=== PATIENT | female | born 1945 | race Caucasian/White ===

== ENCOUNTER → 2020-05-26 16:41 | Outpatient (BNVA) | payer MEDICARE, SELFPAY | PROVIDERS: Family Provider Internal Medicine; Visit Provider Emergency Medicine | DX: Z20.828 Contact with and (suspected) exposure to other viral communicable diseases (principal) | CPT/HCPCS: 87635 ==

== ENCOUNTER 2021-03-20 12:54 | Outpatient (CLI) | payer MEDICARE, SELFPAY ==
--- NOTE | 2021-03-20 13:10 | CT_ITS ---
WS: [id number] CT scan of the abdomen and pelvis with Oral and IV contrast. Additional two-dimensional coronal and s agittal reconstruction was performed. 03/20/2021 Clinical Data: GENERALIZED ABDOMINAL PAIN Comparison: None. DLP: 1148.[address] scans at [facility] use at least one of these dose optimization techniques: automat ed exposure control; mA and/or kV adjustment per patient size (includes targeted exams where dose is matched to clinical indication); or iterative reconstruction. Findings: The lower lungs show no nodules, masses or effusions. There is a small hiatal hernia. The liver, gallbladder, spleen and pancreas are normal. Left adrenal gland is enlarged to 4.3 cm and this may represent an adrenal adenoma. The kidneys show equal bilateral contrast excretion with no cyst or masses. No hydronephrosis or justus l calculi are seen. The abdominal aorta is normal in size with calcification in the wall.. No appendicitis or diverticulitis is seen. Oral contrast is in the stomach, small bowel and colon and there is no bowel dilatation. No abscess, adenopathy, ascites, mass, obstruction or free air is seen . The bladder is unremarkable. The uterus shows calcification within from a leiomyoma. No inguinal presley ia is seen. The bones of the lower thorax, lumbar spine, pelvis, and hips show severe osteoarthritic change of th e lumbar spine with disc narrowing, subluxation at L4-L5 and a posterior fusion at L4-L5. CT/CT abdomen pelvis w con* [id number] Impression: 1. Negative for acute intra-abdominal or pelvic abnormalities. 2. Probable 4.3 cm left adrenal adenoma.
[2021-03-20] MEDS: iohexol 300 mg/mL 50 mL Btl PO (13:34)
[2021-03-20 15:04] LABS: Blood Urea Nitrogen 16 mg/dL (8-23)
[2021-03-20] MEDS: iohexol 300 mg/mL 100 mL Btl IV (15:20)
== END 2021-03-20 12:55 | disposition home or self-care (01) ==
PROVIDERS: PCP Family Medicine; Visit Provider Family Medicine
DX: R10.84 Generalized abdominal pain (principal)
CPT/HCPCS: 74177; 82565; 84520; Q9967

== ENCOUNTER 2021-09-09 12:59 | Emergency (ER) | payer MEDICARE, SELFPAY ==
[2021-09-09 13:55] VITALS: BP 137/94; PULSE 108; RESP 24; TEMP 36.1; O2SAT 98; BMI 26.5
--- NOTE | 2021-09-09 14:03 | XRR_ITS ---
PROCEDURE INFORMATION: Exam: XR Left Knee Exam date and time: 09/09/2021 2:03 PM Age: 76 years old Clinical indication: Pain; Knee; Left TECHNIQUE: Imaging protocol: XR Left knee. Views: 3 views. COMPARISON: No relevant prior studies available. FINDINGS: Bones/joints: Severe joint space narrowing centered at the medial compartment with near clty-re-cidf contact and subchondral sclerotic change. Moderate degenerative changes of the patellofemoral compartment is also noted. Negative for fracture. Joint effusion is present. Soft tissues: Normal. XR/XR knee LT 3V* [id number] IMPRESSION: Severe DJD centered within the medial compartment.
--- NOTE | 2021-09-09 14:04 | W.ED.GENADLT ---
HPI - General Adult General: Chief complaint: General Medical Stated complaint: left knee pain Time Seen by Provider: 09/09/21 14:00 History of Present Illness: HPI narrative: She states thatPatient complains acute left knee pain. Patient states she was told 12 or 13 years ago that she would need a replacement. Last couple weeks been hurting a lot more. She has been able to deal with it until now. Hurts to bear weight. Denies any redness swelling or fever to the knee denies any recent injury. MD complaint: Left knee pain Onset (ago): week(s) Location: lower extremity Severity: severe Severity scale (1-10): 6 Quality: aching Pain Consistency: constant Relieving factors: immobilization Exacerbating factors: movement Associated symptoms: Reports no associated symptoms; Deny chest pain, dyspnea, headache(s), nausea, rash or vomiting Review of Systems Const: Denies: fever(s), chills or body aches Eyes: Denies: change in vision or blurry vision ENMT: Denies: throat pain or nasal congestion Card: Denies: chest pain or dyspnea on exertion Resp: Denies: dyspnea, productive cough or non-productive cough GI: Denies: abdominal pain, nausea or vomiting Musc: Reports: joint pain (Left knee x2 to 3 weeks at least); Denies: extremity pain Skin/Breast: Denies: rash Neuro: Denies: headache(s) Psych: Denies: anxiety or depression Jose/Lymph: Denies: easy bruising PFSH ED PFSH: Family History Sister Hypertension Father Hypertension Denies family history of Diabetes Cancer Social History (Updated 05/26/20 @ 16:14 by Lianna Lao LPN) Smoking and tobacco status: current every day smoker Alcohol intake: never Physical Exam Const: COMMON NORMALS: no acute distress, average body habitus and patient oriented x3 HENMT: COMMON NORMALS: normocephalic HEAD & SCALP: normal to inspection and normocephalic FACE & SINUS: normal facial exam Eye: COMMON NORMALS: conjunctivae normal GENERAL EYE: appearance normal, both eyes and all related structures CONJUNCTIVA: Yes conjunctivae normal Neck/C-Spine: COMMON NORMALS: no JVD Chest: COMMONS NORMALS: normal inspection of the chest Resp: COMMON NORMALS: normal respiratory effort and clear to auscultation bilaterally AUSCULTATION: clear to auscultation bilaterally Cardio: COMMON NORMALS: no JVD, regular rate and regular rhythm RATE: regular rate RHYTHM: regular rhythm GI: COMMON NORMALS: Normal to inspection, nondistended, normoactive bowel sounds present Extremity: LEFT LOWER EXTREMITY: Yes knee joint (Mild swelling noted to the knee which patient states is chronic) Left knee: Yes ROM (Decreased due to pain), Yes neurovascular exam (Intact) and Yes other (No redness or heat noted to the joint.) Neuro: COMMON NORMALS: patient oriented x3 Course Vital Signs: Vital signs: Vital Signs Temperature 97.0 F L 09/09/21 13:55 Pulse Rate 108 H 09/09/21 13:55 Respiratory Rate 24 H 09/09/21 13:55 Blood Pressure 137/94 09/09/21 13:55 Pulse Oximetry 98 09/09/21 13:55 MDM - General Adult MDM Narrative: Medical decision making narrative: Patient with chronic left knee pain that is worsening. X-ray was done that showed severe DJD centered within the medial compartment report identify joint effusion but not delineated as a large joint effusion. Reviewed x-ray with Dr. Gatica. Patient is requesting referral for knee replacement and states that she will follow-up with Dr. Cade to obtain that. Discharge Plan Discharge Patient Disposition: Home Clinical Impression: Osteoarthritis of knee Qualifiers: Osteoarthritis type: primary Laterality: left Qualified Code(s): M17.12 - Unilateral primary osteoarthritis, left knee Condition: Stable Prescriptions: New Celebrex 100 mg capsule 200 mg PO BID Qty: 20 RF: 0 No Action atorvastatin 20 mg tablet 20 mg PO DAILY RF: 0 aspirin [Adult Low Dose Aspirin] 81 mg tablet,delayed release (DR/EC) 81 mg PO DAILY RF: 0 amlodipine 10 mg tablet 10 mg PO DAILY RF: 0 ondansetron 4 mg tablet,disintegrating 4 mg PO Q6H PRN (Reason: nausea and vomiting) Qty: 12 RF: 0 Discharge Orders: Discharge ED (Routine); Ordered 09/09/21 Ordered By: Tano Naranjo Referrals: Milind Cade MD [Primary Care Provider] - Discharge Diet: Usual diet Discharge Activity: Increase activity as tolerated Patient Instructions: Knee Pain (ED), Arthritis (ED) Activity Restrictions/Additional Instructions: Follow-up with medical provider as directed. Take medications as prescribed. Return to the ER or your medical provider if condition worsens. Please read and understand discharge instructions. If any questions ask please. Please follow-up with Dr. Cade and get a referral to interior specialist for possible knee replacement. You have severe osteoarthritis of the left knee. You have [id number] in this knee and it needs repair for you 2 have improved quality of life. Coding Level of Care Code ED Return To Service Inspector for Radhag Fwd Exam Comprehensive
[2021-09-09] MEDS: methylPREDNISolone (DEPO) 80 MG/ML INJ 1 mL IM (15:29)
[2021-09-09] MEDS: CELEcoxib 200 mg Capsule 400 MG PO (15:29)
[2021-09-09 15:31] VITALS: BP 159/96; PULSE 96; RESP 19; O2SAT 94
== END 2021-09-09 15:34 | disposition home or self-care (01) ==
PROVIDERS: Emergency Provider Nurse Practitioner Family; PCP Family Medicine
DX: M17.12 Unilateral primary osteoarthritis, left knee (principal); Z79.82 Long term (current) use of aspirin; F17.210 Nicotine dependence, cigarettes, uncomplicated
CPT/HCPCS: 73562; 96372; 99283; J1040

== ENCOUNTER 2021-10-22 13:48 | Observation (INO) | payer MEDICARE, SELFPAY ==
[2021-10-17 13:19] VITALS: BMI 31.1
--- NOTE | 2021-10-17 13:36 | ECG_ITS ---
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 Measurements Intervals [place] Rate: 118 P: 64 PA: 168 QRS: -14 QRSD: 67 T: 47 QT: 314 QTc: 441 Interpretive Statements SINUS TACHYCARDIA LOW QRS VOLTAGE IN PRECORDIAL LEADS [QRS DEFLECTION < 1.0 mV IN CHEST LEADS] POSSIBLE ANTERIOR MYOCARDIAL INFARCTION , PROBABLY OLD [30 ms Q WAVE IN V3/V4, OR R < 0.2 mV IN V4] No previous ECG available for comparison Electronically Signed On 10-17-2021 16:04:14 CRITICAL CARE PARAMEDIC by Ceferino Gonzalez M.D. [id number]
[2021-10-22] VITALS (20 sets, daily range): BP systolic 91–133; BP diastolic 48–87; PULSE 76–95; RESP 14–18; TEMP 36.4–36.7; O2SAT 91–100
[2021-10-22] MEDS: sodium chloride 0.9% 1,000 ML 30 ML IV (08:57)
[2021-10-22] MEDS: oxyCODONE 20 mg ER (12 HR) Tablet PO (08:58)
[2021-10-22] MEDS: acetaminophen 500 mg Tablet 1000 MG PO ×2 (08:58→15:28)
[2021-10-22] MEDS: gabapentin 300 mg Capsule PO ×2 (08:58→18:25)
[2021-10-22] MEDS: CELEcoxib 200 mg Capsule 400 MG PO (09:02)
[2021-10-22] MEDS: scopolamine 1.5 Patch 1 PATCH TRANSDERMA (09:16)
--- NOTE | 2021-10-22 09:16 | P.ANESUD_ITS ---
Pre-Anesthetic Update Pre-Anesthetic Assessment: Date of Surgery/Procedure: 10/22/21 Preop Alana gnosis: Osteoarthritis Left knee Proposed Procedure: Operation Date: 10/22/21 09:50 Proposed Procedures p Left Total Knee Arthroplasty 13909/m17.12(Left) - Jayme Olivo MD Any changes to Pre-Anesthetic Assessment?: No Last Intake: Intake Last Liquid Date 10/21/21 Last Liquid Time 22:00 Last Solid Date 10/21/21 Last Solid Time 22:00 Vitals: Temperature 98.1 F 10/22/21 08:32 Temperature Source Temporal Artery S can 10/22/21 08:32 Pulse Rate 95 10/22/21 08:32 Respiratory Rate 18 10/22/21 08:32 Blood Pressure 128/70 10/22/21 08:32 Blood Pressure Izzy n 89 10/22/21 08:32 Pulse Oximetry 94 10/22/21 08:32 Oxygen Delivery Me thod 10/22/21 08:39 Exam: Pre-Anes Outpt Exam: alert, oriented x 3, clear to auscultation bilaterally and regular rate & rhythm Other Pertinent Information: Other Pertinent Information: We discussed risk and benefits of nerve block for post op pain control including management of pain and titration of pain medications as signs/symptoms of nerve block wearing off begin to appear and/or prior bed. We discussed risk of failed nerve block, vascular injury or other vital structure injury, abscess/infection, LAST, and nerve injury. Patient prefers general. Would like to be out for the block. We discussed options for timing, patient agreed to have block placed in PACU when she is waking up from anesthesia at which point she might have recall but will still be under the effects and sedation of anesthesia. Cardiac Studies: No Data to Display
[2021-10-22 10:04] LABS: Adenovirus Not Detected (NOT DETECT); Coronavirus 229E,HKU1,NL63,OC4 Not Detected (NOT DETECT); Human Metapneumovirus Not Detected (NOT DETECT); Human Rhinovirus/Enterovirus Not Detected (NOT DETECT); Influenza A Detected (NOT DETECT); SARS-COV-2 Not Detected (NOT DETECT)
[2021-10-22 10:05] LABS: Chlamydia Pneumoniae Not Detected (NOT DETECT); Influenza A H1 Not Detected (NOT DETECT); Influenza A H1-2009 Not Detected (NOT DETECT); Influenza A H3 Detected (NOT DETECT); Influenza B Not Detected (NOT DETECT); Mycoplasma Pneumoniae Not Detected (NOT DETECT); Parainfluenza Virus Type 1 Not Detected (NOT DETECT); Parainfluenza Virus Type 2 Not Detected (NOT DETECT); Parainfluenza Virus Type 3 Not Detected (NOT DETECT); Parainfluenza Virus Type 4 Not Detected (NOT DETECT); Respiratory Syncytial Virus A Not Detected (NOT DETECT); Respiratory Syncytial Virus B Not Detected (NOT DETECT)
[2021-10-22 10:05] LABS: Results from Genmark
[2021-10-22 10:06] LABS: Influenza A Detected (NOT DETECT); Influenza A H1 Not Detected (NOT DETECT); Influenza A H1-2009 Not Detected (NOT DETECT); Influenza A H3 Detected (NOT DETECT); Influenza B Not Detected (NOT DETECT)
--- NOTE | 2021-10-22 10:11 | W.PM.OPSUD ---
Surgery/Procedure H&P Update DATE OF PROCEDURE: October 22, 2021 DATE H&P PERFORMED: 10/10/21 H&P UPDATE INFORMATION: I have reviewed H&P completed within last 30 days PREOP DIAGNOSIS: Osteoarthritis Left knee PLANNED PROCEDURE: Operation Date: 10/22/21 09:50 Proposed Procedures p Left Total Knee Arthroplasty 45416/m17.12(Left) - Jayme Olivo MD
[2021-10-22] MEDS: tranexamic acid 1,000 mg/10mL SDV 1000 MG XX (11:08)
[2021-10-22] MEDS: EPINEPHrine 1 mg/mL INJ XX (11:09)
[2021-10-22] MEDS: ketorolac 30 mg/mL INJ XX (11:09)
[2021-10-22] MEDS: tranexamic acid 1,000 mg/10mL SDV 1000 MG IV (11:10)
--- NOTE | 2021-10-22 12:31 | XRR_ITS ---
PROCEDURE INFORMATION: Exam: XR Left Knee Exam date and time: 10/22/2021 12:31 PM Age: 76 years old Clinical indication: Device placement; Joint replacement hardware; Prior surgery; Surgery date: Post-operative (0-2 days); Additional info: Left total knee arthroplasty TECHNIQUE: Imaging protocol: XR Left knee. Views: 1 or 2 views. COMPARISON: CR (LOW EXM, ) 09/09/2021 2:21 PM FINDINGS: Bones/joints: The patient has undergone recent insertion of a total knee prosthesis. Some gas is present in the joint from the recent surgery. No fracture. Soft tissues: Normal. XR/XR knee LT 1-2V [id number] IMPRESSION: Satisfactory appearance of the knee joint prosthesis.
--- NOTE | 2021-10-22 12:33 | P.OP_ITS ---
Operative Report Date of procedure: October 22, 2021 Pre-op diagnosis: Preop Diagnosis Osteoarthritis Left knee Post-op diagnosis: same Post-op diagnosis: Same Post-op findings: Same Procedure done: Left total knee arthroplasty Implants: Belle total knee arthroplasty components were used includin) Size 2 triathalon cruciate retaining femoral component 2) Size 3 Tritanium tibial component 3) 29 mm /9 mm thickness Tritanium asymetric patella 4) Size 3/11 mm thickness CR tibial bearing insert Pathology: none sent Surgeon: Jayme Olivo Anesthesia: Nerve Block (Spinal, adductor canal block) Estimated blood loss (mL): 150 Condition: stable Disposition: PACU Procedure: The patient was taken to the operating room. Patient was given 1 g of tranexamic acid . The above anesthesia provided by the anesthesia service. A timeout was performed. The patient was prepped and draped in the usual fashion with the lower extremity exposed. A anterior incision was made, midline, from a point proximal to the patella to the distal tibial tubercle. The knee was entered through a medial parapatellar approach. The patella could be displaced laterally and the knee flexed. The patellar fat pad was resected to provide better visibility. Retractors were placed medially and laterally adjacent to the tibial plateau. The femoral canal was drilled in line with the longitudinal axis of the femur. Intramedullary femoral guide for used to make a distal femoral cut in 5 degrees of valgus, resecting 8 mm from the more prominent condyle. Next the extra medullary tibial guide was placed in alignment with the longitudinal axis of the tibia. The cutting guides were set to remove just over 9 mm from the high tibial plateau. The proximal tibia was then cut. The femoral measuring guide was then placed over the distal femur. Rotation was verified checking the relationship of the guide to the condyle and the trochlear groove. The femur was measured and cut for the desired femoral component. The desired tibial baseplate was then chosen. A trial reduction with the femur tibial baseplate and polyethylene was done, assuring that the knee was stable throughout full motion. Ligament balancing involved nothing more than a release of the deep medial collateral ligament and removal of residual medial tibial osteophyte tibia was prepared for the tibial baseplate. Patellar thickness was then measured. The patella was cut removing articular cartilage and prepared for appropriate size patellar button. surfaces were cleaned with a gentamicin solution. The femur tibia and patella were then press- fit into place. The posterior capsule and collateral ligaments were then injected with a solution of 100 mL of 0.2% ropivacaine, 1 mL of a 1:1000 epinephrine solution, 30 mg of Toradol, and 1 g of tranexamic acid. Final polyethylene component was then snapped into place into the tibia. The extensor retinaculum was closed with a running 1 Stratafix interrupted 1 E thibond. The subcutaneous tissues were closed with 2-0 Vicryl and the skin was closed with a running 4-0 Stratafix. The wound was covered with a Dermabond Prineo dressing. It was covered with 4xrs and a compressive Tubigauze was applied. The patient was taken to recovery room in stable condition.
[2021-10-22] MEDS: HYDROmorphone 1 mg/mL INJ 1 mL 0.5 MG IVP (12:43)
--- NOTE | 2021-10-22 12:54 | ANES.PROC ---
Anesthesia Procedures Procedure/Date: 10/22/21 Nerve Block ^: Nerve Block 1: Main Anesthesia: general anesthesia Time Out Performed: Yes (3175) Consent: requested by attending/covering physician and from patient Nerve block location: adductor canal Anesthesia monitors applied: pulse oximetry, EKG, BP cuff and oxygen Nerve block position: supine Anesthetic Used: bupivacaine 0.5% Amount of anesthesia used (mL): 20 Ultrasound used to: recognize landmarks and visualize and ID femerol nerve Nerve Stimulator Used?: No Interscalene/Femoral BLK: 4 stimuplex 21 g needle used for position and inplane approach, visualize local anesthetic spread and no vascular puncture identified Injection: neg aspiration of heme Patient Tolerated Procedure: well Complications: none Additional Comments: After time out sterile prep, using sterile technique, and using real time US guidance for target selection needle was inserted with real time visualization of needle entry and real time visualization of needle advancement toward intended target. Negative aspiration. LA injected incrementally with negative aspiration every 5 cc and real time US visualization of LA spread throughout procedure. Tolerated well. Image(s) saved.
[2021-10-22] MEDS: TRAMadol 50 mg Tablet PO ×3 (15:27→22:19)
[2021-10-22] MEDS: oxyCODONE 5 mg IR Tab/Cap PO (15:35)
--- NOTE | 2021-10-22 16:43 | ANE.PACU2 ---
Inpatient post-anesthesia follow up: Airway intact: Yes Vital signs: Temperature 98.1 F Pulse Rate 76 Respiratory Rate 18 Blood Pressure 112/65 Pulse Oximetry 95 Oxygen Delivery Me thod Room Air Oxygen Flow Rate 6 Fraction of Inspir ed Oxygen Hydration adequate: Yes Nausea and vomiting: No Pain level: 6 Mental status: Baseline
[2021-10-22] MEDS: CELEcoxib 200 mg Capsule PO (22:18)
[2021-10-23] MEDS: acetaminophen 500 mg Tablet 1000 MG PO ×2 (00:28→08:57)
[2021-10-23 02:05] VITALS: RESP 16
[2021-10-23] MEDS: oxyCODONE 5 mg IR Tab/Cap PO ×3 (02:05→12:51)
--- NOTE | 2021-10-23 03:14 | PC.NURSE ---
Went in patient's room because IV pump was beeping, patient reported that medicine really hurt when it was going in, I hope it is done. This nurse looked at the IV site and found that it was infiltrated. This nurse discontinued the IV. This nurse then called inpatient pharmacy to verify that cefazolin is not a vesicant. Roselia verified that it can be given Intramuscular, so it is not a vesicant.
[2021-10-23 04:00] VITALS: BP 129/77; PULSE 74; RESP 16; TEMP 36.4; O2SAT 95
[2021-10-23 04:48] LABS: Hemoglobin 11.8 g/dL (11.5-15.3)
[2021-10-23 08:54] VITALS: RESP 18
[2021-10-23] MEDS: TRAMadol 50 mg Tablet PO (08:55)
[2021-10-23] MEDS: CELEcoxib 200 mg Capsule PO (08:55)
[2021-10-23] MEDS: amlodipine 10 mg Tablet PO (08:55)
[2021-10-23] MEDS: atorvastatin 40 mg Tablet 20 MG PO (08:55)
[2021-10-23] MEDS: gabapentin 300 mg Capsule PO (08:56)
--- NOTE | 2021-10-23 09:12 | P.DS_ITS ---
Discharge Providers Date of Admission: 10/22/21 13:48 Date of Discharge: October 23, 2021 Attending Provider at Admission: Jayme Wiggins MD Attending Provider at Discharge: Jayme Wiggins MD Primary Care Provider: Milind Cade MD Reason for Visit Reason for Visit: arthritis of left knee Hospital Course Hospital Course The patient tolerated surgery well. They remained hemodynamically stable. They was begun on aspirin and [] for DVT prophylaxis. The patient was mobilized with therapy beginning the day of surgery and by the first postoperative day in dependent with the walker. As the pain was adequately controlled and they were fully mobile they were discharged home. Physical Exam Narrative: On the day of discharge the knee incision was clean. They had no drainage. There is minimal swelling in the thigh and knee and the calf. No distal neurovascular deficits were noted Discharge Data Studies Completed and Pending Completed Studies During Hospitalization Category Date Time Status XR knee LT 1-2V 16672 Routine Exams 10/22/21 12:31 Completed Radiology Impressions Knee X-Ray 10/22/21 12:31 IMPRESSION: Satisfactory appearance of the knee joint prosthesis. Laboratory Results Hgb 11.8 g/dL (11.5-15.3) 10/23/21 04:25 Nasal Influ A H1 2009 PCR Not detected (NOT DETECT) 10/22/21 10:05 Coronavirus 229E (PCR) Not detected (NOT DETECT) 10/20/21 05:24 Influenza A (H1) PCR Not detected (NOT DETECT) 10/22/21 10:05 Influenza A (H3) PCR Detected (NOT DETECT) A 10/22/21 10:05 Influenza Type A (PCR) Detected (NOT DETECT) A 10/22/21 10:05 Influenza Type B (PCR) Not detected (NOT DETECT) 10/22/21 10:05 SARS-CoV-2 (PCR) Not detected (NOT DETECT) 10/20/21 05:24 Vitals Last Vital Signs Temp 97.6 F 10/23/21 04:00 Pulse 74 10/23/21 04:00 Resp 18 10/23/21 08:54 BP 129/77 10/23/21 04:00 Pulse Ox 95 10/23/21 04:00 Discharge Plan Discharge Patient Disposition: Home Condition: Stable Prescriptions: New oxycodone 5 mg Tablet 5 mg PO Q4H PRN (Reason: Moderate Pain) 7 Days Qty: 40 0RF gabapentin 300 mg Capsule 300 mg PO BID 7 Days Qty: 14 0RF acetaminophen 500 mg Tablet 1,000 mg PO Q8H 14 Days Qty: 84 0RF Continued atorvastatin 20 mg tablet 20 mg PO DAILY 0RF amlodipine 10 mg tablet 10 mg PO DAILY 0RF ondansetron 4 mg tablet,disintegrating 4 mg PO Q6H PRN (Reason: nausea and vomiting) Qty: 12 0RF Rx Instructions: 340b please tramadol 50 mg tablet 50 mg PO QID 0RF temazepam [Restoril] 15 mg capsule 15 mg PO PRN PRN (Reason: Insomnia) 0RF celecoxib [Celebrex] 100 mg capsule 100 mg PO BID 0RF Discharge Orders: Discharge Order (Routine); Ordered 10/23/21 Ordered By: Jayme Wiggins Other Ambulatory Orders: DME: Mark (Order) Location: None Selected Ordered By: Jayme Wiggins Referrals: Jayme Wiggins MD [Physician] - 10/26/21 8:00 am Discharge Activity: Limit activity as instructed Patient Instructions: Opioid Safety Activity Restrictions/Additional Instructions: Okay to shower Keep Tubigauze sleeve in place for swelling. Okay to remove for hygiene. Apply FirstIce up to 20 min/hr for pain and swelling Take Neurontin twice a day for 7 days. Take Tylenol 500mg (2 tabs) as needed 3 times a day for mild pain take oxycodone for breakthrough pain. Exercises per physical therapy. May weight-bear as tolerated on total knee arthroplasty IF HAVE ANY PROBLEMS OR QUESTIONS CALL [facility] CEO AT AND ASK TO HAVE DR. WIGGINS PAGED. Discharge Attestations Time Spent in Discharge Care*: other Quality Metrics Clinical Quality Measures [ No reported AMI, CVA or VTE this stay] Coding Level of Care Code Acute Chg FW DC note
[2021-10-23 10:26] VITALS: BP 100/65; PULSE 77; RESP 18; TEMP 36.5; O2SAT 97
[2021-10-23 12:51] VITALS: RESP 16
[2021-10-23 12:55] VITALS: BP 108/72; PULSE 78; RESP 16; TEMP 36.5; O2SAT 97
== END 2021-10-23 12:57 | disposition home or self-care (01) ==
LOC: OBGYN 13:49
PROVIDERS: Admitting Provider Orthopaedic Surgery; PCP Family Medicine; Visit Provider Orthopaedic Surgery
PROC: (CPT 27447; principal; 2021-10-22 09:35)
DX: M17.12 Unilateral primary osteoarthritis, left knee (principal); Z79.82 Long term (current) use of aspirin; F17.210 Nicotine dependence, cigarettes, uncomplicated
CPT/HCPCS: 27447; 36415; 64447; 73560; 76942; 85018; 87631; 87635; 93005; 97110; 97116; 97161; 97165; C1776; G0378; J0171; J0690; J1100; J1170; J1580; J1885; J2405; J2704; J2710; J2795; J3010; J3490; J7030

== ENCOUNTER → 2022-01-08 09:34 | Outpatient (BNVA) | payer MEDICARE, SELFPAY | PROVIDERS: PCP Family Medicine; Visit Provider Orthopaedic Surgery | DX: Z96.652 Presence of left artificial knee joint (principal) | CPT/HCPCS: 73560; 73565 ==

== ENCOUNTER → 2022-03-14 07:52 | Outpatient (BNVA) | payer MEDICARE, SELFPAY | PROVIDERS: PCP Family Medicine; Visit Provider Family Medicine | DX: E78.5 Hyperlipidemia, unspecified (principal); I10 Essential (primary) hypertension | CPT/HCPCS: 80053; 80061; 85025 ==

== ENCOUNTER → 2022-11-04 10:30 | Outpatient (BNVA) | payer MEDICARE, SELFPAY | PROVIDERS: PCP Family Medicine; Visit Provider Family Medicine | DX: E78.5 Hyperlipidemia, unspecified (principal); I10 Essential (primary) hypertension | CPT/HCPCS: 80053; 80061; 85025 ==